=== PATIENT | female | born 1965 | race African-American/Black ===

== ENCOUNTER 2018-12-31 11:05 | Inpatient (IN) ==
[2018-12-31] MEDS ORDERED: ONDANSETRON 4 MG/2 ML VIAL IV STA (15:10)
[2018-12-31] MEDS ORDERED: SODIUM CHLORIDE 0.9% 1,000 ML IV STA (15:10)
[2018-12-31 15:51] LABS: Basophils % 0.4 % (0.0-0.8); Eosinophils # 0.1 10*3/uL (0.0-0.87); Eosinophils % 1.8 % (0.00-10.9); Hemoglobin 12.2 GM/DL (12.0-16.0); Immature Granulocytes % 0.4 %; Immature Granulocytes Absolute 0.03 #; Lymphocytes # 3.1 10*3/uL (1.4-4.0); Lymphocytes % 38.7 % (21.3-54.2); Mean Corpuscular HGB Conc 31.3 GM/DL (32-36); Mean Corpuscular Volume 95.1 FL (87-102); Mean Platelet Volume 10.9 FL (9.6-12.0); Monocytes % 10.2 % (1.7-12.7); Neutrophils % 48.5 % (38.7-73.9); Platelet Count 260 T/CUMM (130-400); White Blood Count 7.9 T/CUMM (4-12)
[2018-12-31 16:11] LABS: Albumin 3.6 G/DL (3.4-5.0); Bilirubin,Total 0.4 MG/DL (0.2-1.0); Calcium 9.3 MG/DL (8.5-10.1); Osmolality,Calculated 276.4 MOS/KG (273-304)
[2018-12-31] MEDS ORDERED: PIPERACILLIN/TAZOBACTAM 3,375 MG in SODIUM CHLORIDE 0.9% 100 ML IV STA (16:17)
[2018-12-31] MEDS ORDERED: ACETAMINOPHEN 325 MG TABLET PO PRN (20:22)
[2018-12-31] MEDS ORDERED: ONDANSETRON 4 MG/2 ML VIAL IV PRN (20:22)
[2019-01-01] MEDS: PIPERACILLIN/TAZOBACTAM 3,375 MG in SODIUM CHLORIDE 0.9% 100 ML IV SCH ×3 (00:43→17:32)
[2019-01-01 05:59] LABS: Basophils % 0.5 % (0.0-0.8); Eosinophils # 0.2 10*3/uL (0.0-0.87); Hematocrit 37.9 VOL% (35.7-47.0); Hemoglobin 11.8 GM/DL (12.0-16.0); Immature Granulocytes % 0.3 %; Immature Granulocytes Absolute 0.02 #; Lymphocytes # 2.7 10*3/uL (1.4-4.0); Lymphocytes % 43.6 % (21.3-54.2); Mean Corpuscular HGB Conc 31.1 GM/DL (32-36); Monocytes % 10.7 % (1.7-12.7); Neutrophils % 41.9 % (38.7-73.9); Platelet Count 264 T/CUMM (130-400); Red Blood Count 3.99 MC/CUMM (3.8-5.5); Red Cell Distribution Width 14.9 % (9.3-17.3); White Blood Count 6.3 T/CUMM (4-12)
[2019-01-01] MEDS: PANTOPRAZOLE 40 MG TABLET PO SCH (09:24)
[2019-01-01] MEDS ORDERED: ALBUTEROL 2.5 MG/3 ML NEB RESP TX PRN (10:30)
[2019-01-01] MEDS ORDERED: BUPIVACAINE MPF 0.25% /EPI 30 ML VIAL ONE (14:35)
[2019-01-01] MEDS ORDERED: TISSUE ADHESIVE 1 EACH APPLICATOR TOP ONE (14:35)
[2019-01-01] MEDS ORDERED: LIDOCAINE 1% 20 ML VIAL ONE (14:35)
[2019-01-01] MEDS ORDERED: fentaNYL 100 MCG/2 ML VIAL ONE (17:38)
[2019-01-01] MEDS ORDERED: PROPOFOL 200 MG/20 ML VIAL IV ONE (17:38)
[2019-01-01] MEDS ORDERED: MIDAZOLAM 2 MG/2 ML VIAL ONE (17:38)
[2019-01-01] MEDS ORDERED: SEVOFLURANE 1 UNIT/15 MINUTE INH ONE (17:38)
[2019-01-01] MEDS ORDERED: KETOROLAC 30 MG/1 ML VIAL ONE (17:39)
[2019-01-01] MEDS ORDERED: ROCURONIUM 100 MG/10 ML VIAL IV ONE (17:39)
[2019-01-01] MEDS ORDERED: LABETALOL 100 MG/20 ML VIAL IV ONE (17:39)
[2019-01-01] MEDS ORDERED: LACTATED RINGERS 1,000 ML IV ONE (17:39)
[2019-01-01] MEDS ORDERED: hydrALAZINE 20 MG/1 ML VIAL ONE (17:39)
[2019-01-01] MEDS ORDERED: ACETAMINOPHEN 1,000 MG/100 ML VIAL IV ONE (17:39)
[2019-01-01] MEDS ORDERED: ONDANSETRON 4 MG/2 ML VIAL ONE (17:39)
[2019-01-01] MEDS ORDERED: SUCCINYLCHOLINE 200 MG/10 ML VIAL ONE (17:39)
[2019-01-01] MEDS ORDERED: GLYCOPYRROLATE 0.4 MG/2 ML VIAL ONE (17:39)
[2019-01-01] MEDS ORDERED: NEOSTIGMINE 10 MG/10 ML VIAL ONE (17:39)
[2019-01-01] MEDS ORDERED: ONDANSETRON 4 MG/2 ML VIAL IV PRN (17:41)
[2019-01-01] MEDS: HYDROmorphone 2 MG/1 ML VIAL IV PRN ×4 (17:44→18:09)
[2019-01-01] MEDS: FLUTICASONE/SALMETEROL 250-50 DISKUS 14 DOSE INH SCH (20:07)
[2019-01-01] MEDS ORDERED: SIMVASTATIN 10 MG TABLET PO SCH (21:00)
[2019-01-02 01:12] VITALS: BP 158/81
[2019-01-02] MEDS: PIPERACILLIN/TAZOBACTAM 3,375 MG in SODIUM CHLORIDE 0.9% 100 ML IV SCH ×2 (02:06→08:26)
[2019-01-02 05:47] LABS: Basophils % 0.1 % (0.0-0.8); Hematocrit 38.7 VOL% (35.7-47.0); Hemoglobin 12.2 GM/DL (12.0-16.0); Immature Granulocytes % 0.7 %; Immature Granulocytes Absolute 0.08 #; Lymphocytes # 1.3 10*3/uL (1.4-4.0); Mean Corpuscular HGB Conc 31.5 GM/DL (32-36); Mean Corpuscular Volume 94.4 FL (87-102); Mean Platelet Volume 10.9 FL (9.6-12.0); Monocytes % 2.7 % (1.7-12.7); Neutrophils % 85.5 % (38.7-73.9); Platelet Count 281 T/CUMM (130-400); Red Cell Distribution Width 14.9 % (9.3-17.3); White Blood Count 11.3 T/CUMM (4-12)
[2019-01-02 06:17] LABS: Albumin 3.2 G/DL (3.4-5.0); Bilirubin,Total 0.4 MG/DL (0.2-1.0); Calcium 9.6 MG/DL (8.5-10.1); Osmolality,Calculated 278.4 MOS/KG (273-304); Total Protein 7.5 G/DL (6.4-8.3)
[2019-01-02] MEDS: PANTOPRAZOLE 40 MG TABLET PO SCH (08:23)
[2019-01-02] MEDS ORDERED: LOSARTAN 25 MG TABLET PO SCH (09:00)
[2019-01-02] MEDS ORDERED: ASPIRIN EC 81 MG TABLET PO SCH (09:00)
[2019-01-02] MEDS ORDERED: BISACODYL 5 MG TABLET PO PRN (09:58)
[2019-01-02] MEDS: FLUTICASONE/SALMETEROL 250-50 DISKUS 14 DOSE INH SCH (11:20)
== END 2019-01-02 13:33 | disposition home or self-care (01) | DRG 418 ==
LOC: N.ED 11:05 → N.EDINP 16:17 → N.2E 20:19
PROVIDERS: ADMIT Surgery; ATTEND Surgery
PROC: LAPCHOL (2019-01-01 16:00)